=== PATIENT | female | born 1955 | race Two or more races ===

== ENCOUNTER 2023-08-29 06:15 | Day surgery (SDC) | payer OTHER ==
[~2023-08-29] VITALS: Ht 165.1 cm; Wt 77.1 kg
[~2023-08-29 06:15] MED LIST: CRESTOR10 MG PO
[2023-08-29] MEDS ORDERED: CEFAZOLIN SODIUM 1,000 MG VIAL ONE (22:45)
[2023-08-29] MEDS ORDERED: CEFAZOLIN SODIUM 1,000 MG VIAL IV ONE (23:00)
== END 2023-08-30 01:30 | disposition home or self-care (01) ==
LOC: CIR.AMB 06:15
PROVIDERS: ATTEND Surgery
DX: C50.412 Malignant neoplasm of upper-outer quadrant of left female breast (principal); C77.3 Secondary and unspecified malignant neoplasm of axilla and upper limb lymph nodes; K57.30 Diverticulosis of large intestine without perforation or abscess without bleeding
CPT/HCPCS: 19301; 38525; 19281; A9541; L8699